=== PATIENT | female | born 1995 | race Caucasian/White ===

== ENCOUNTER 2017-12-11 18:36 | Emergency (ER) | payer OTHER ==
[~2017-12-11] VITALS: Ht 160 cm; Wt 54.4 kg
[~2017-12-11 18:36] MED LIST: INTESTINEX1 CAP PO; PROTONIX40 MG PO
== END 2017-12-11 22:21 | disposition home or self-care (01) ==
LOC: ER 18:36
DX: S00.83XA Contusion of other part of head, initial encounter (principal); W22.8XXA Striking against or struck by other objects, initial encounter; Y93.89 Activity, other specified; Y92.89 Other specified places as the place of occurrence of the external cause; Y99.8 Other external cause status

== ENCOUNTER → 2018-11-05 07:13 | Outpatient (CLI) | payer OTHER | END | disposition home or self-care (01) | LOC: LAB 07:13 | DX: D68.61 Antiphospholipid syndrome (principal); D68.62 Lupus anticoagulant syndrome; K80.10 Calculus of gallbladder with chronic cholecystitis without obstruction; D68.8 Other specified coagulation defects; D50.8 Other iron deficiency anemias; D51.3 Other dietary vitamin B12 deficiency anemia; I10 Essential (primary) hypertension ==

== ENCOUNTER 2019-01-02 17:28 | Emergency (ER) | payer OTHER ==
[~2019-01-02] VITALS: Ht 160 cm; Wt 52.2 kg
== END 2019-01-02 19:51 | disposition home or self-care (01) ==
LOC: ER 17:28
DX: K80.80 Other cholelithiasis without obstruction (principal)

== ENCOUNTER → 2019-10-01 | Emergency (ER) | payer OTHER ==
[~2019-10-01] VITALS: Ht 157.5 cm; Wt 50.3 kg
== END | disposition home or self-care (01) ==
LOC: ER 13:46
DX: S00.03XA Contusion of scalp, initial encounter (principal); W22.8XXA Striking against or struck by other objects, initial encounter; Y93.89 Activity, other specified; Y92.018 Other place in single-family (private) house as the place of occurrence of the external cause; Y99.8 Other external cause status

== ENCOUNTER 2019-12-30 10:42 | Outpatient (CLI) | payer OTHER | END 2019-12-30 15:00 | disposition home or self-care (01) | LOC: LAB 10:42 | PROVIDERS: ATTEND Internal Medicine Hematology & Oncology | DX: D50.8 Other iron deficiency anemias (principal); I10 Essential (primary) hypertension; E78.2 Mixed hyperlipidemia; E03.8 Other specified hypothyroidism; D68.8 Other specified coagulation defects; D68.62 Lupus anticoagulant syndrome; K80.10 Calculus of gallbladder with chronic cholecystitis without obstruction ==

== ENCOUNTER → 2020-03-28 07:41 | Outpatient (CLI) | payer OTHER | END | disposition home or self-care (01) | LOC: LAB 07:41 | PROVIDERS: ATTEND Internal Medicine Hematology & Oncology | DX: D68.8 Other specified coagulation defects (principal); D66 Hereditary factor VIII deficiency; D67 Hereditary factor IX deficiency; D68.2 Hereditary deficiency of other clotting factors; D68.1 Hereditary factor XI deficiency; D68.62 Lupus anticoagulant syndrome; K80.10 Calculus of gallbladder with chronic cholecystitis without obstruction ==

== ENCOUNTER 2020-05-02 09:45 | Outpatient (CLI) | payer OTHER | END 2020-05-02 09:50 | disposition home or self-care (01) | LOC: LAB 09:45 | PROVIDERS: ATTEND Internal Medicine Hematology & Oncology | DX: D68.8 Other specified coagulation defects (principal); D67 Hereditary factor IX deficiency; D68.61 Antiphospholipid syndrome; K80.10 Calculus of gallbladder with chronic cholecystitis without obstruction ==

== ENCOUNTER 2020-07-13 07:35 | Outpatient (CLI) | payer OTHER | END 2020-07-13 07:59 | disposition home or self-care (01) | LOC: LAB 07:35 | PROVIDERS: ATTEND Internal Medicine Hematology & Oncology | DX: D67 Hereditary factor IX deficiency (principal); D68.8 Other specified coagulation defects; D68.62 Lupus anticoagulant syndrome; K80.10 Calculus of gallbladder with chronic cholecystitis without obstruction ==

== ENCOUNTER 2021-05-08 18:06 | Emergency (ER) | payer OTHER ==
[~2021-05-08] VITALS: Ht 160 cm; Wt 51.7 kg
== END 2021-05-09 00:55 | disposition home or self-care (01) ==
LOC: ER 18:06
DX: K80.20 Calculus of gallbladder without cholecystitis without obstruction (principal)
CPT/HCPCS: 74177; Q9965

== ENCOUNTER 2022-01-10 09:10 | Outpatient (CLI) | payer OTHER | END 2022-01-10 09:11 | disposition home or self-care (01) | LOC: LAB 09:10 | PROVIDERS: ATTEND Neuromusculoskeletal Medicine & OMM | DX: G62.9 Polyneuropathy, unspecified (principal); E11.9 Type 2 diabetes mellitus without complications; E03.9 Hypothyroidism, unspecified; G43.009 Migraine without aura, not intractable, without status migrainosus; R20.2 Paresthesia of skin; E78.00 Pure hypercholesterolemia, unspecified ==

== ENCOUNTER → 2023-02-26 06:43 | Outpatient (CLI) | payer OTHER ==
[2023-02-26 07:58] LABS: COL EPI 111 SECONDS (82-175)
[2023-02-26 08:04] LABS: HEMATOCRIT 37.7 % (36.0-45.00); HEMOGLOBIN 12.6 g/dL (12.0-15.00); MEAN CELL VOLUME 83.7 fL (80.00-100.00); MEAN CORPUSCULAR HEMOGLOBIN 27.9 pg (27.00-32.0); MEAN CORPUSCULAR HGB CONC 33.4 g/dl (32.0-36.0); PLATELET COUNT 171 K/uL (150-450); RED BLOOD COUNT 4.51 M/uL (4.00-6.00)
[2023-02-26 08:10] LABS: INR 1.09; PARTIAL THROMBOPLASTIN TIME 33.8 SECONDS (22.0-34.0); PROTHROMBIN TIME 11.4 SECONDS (9.0-11.5)
[2023-02-26 08:30] LABS: PT 50:50 10.5 SECONDS (9.7-11.4); PTT 50:50 29.9 SECONDS (22.4-33.0)
[2023-02-26 08:34] LABS: % SATURACION 16.1 % (15-50); ALBUMIN 3.4 gm/dL (3.4-5.0); BILIRUBIN TOTAL 0.48 mg/dL (0.3-1.2); CALCIUM 8.5 mg/dL (8.5-10.1); CREATININE SERUM 0.75 mg/dL (0.55-1.02); FERRITIN 46.2 NG/ML (8-252); GFR 91.36; GLOBULINA 3.6 G/DL (2.4-3.5); POTASSIUM 4.1 mEq/L (3.5-5.1)
[2023-02-26 09:29] LABS: FOLIC ACID 15.19 ng/ml (4.78-20)
== END | disposition home or self-care (01) ==
LOC: LAB 06:43
PROVIDERS: ATTEND Internal Medicine Hematology & Oncology
DX: D50.8 Other iron deficiency anemias (principal); I10 Essential (primary) hypertension; R74.02 Elevation of levels of lactic acid dehydrogenase [LDH]; K76.89 Other specified diseases of liver; D68.8 Other specified coagulation defects; D69.1 Qualitative platelet defects; D68.312 Antiphospholipid antibody with hemorrhagic disorder; D67 Hereditary factor IX deficiency; K80.10 Calculus of gallbladder with chronic cholecystitis without obstruction; L60.1 Onycholysis

== ENCOUNTER 2023-05-20 05:40 | Day surgery (SDC) | payer OTHER ==
[2023-04-30 10:58] LABS: PH,URINE 7.5 (5.0-8.0); URINE APPEARANCE Clear; URINE BILIRRUBIN Negative (NEGATIVE); URINE BLOOD Negative; URINE COLOR Yellow; URINE GLUCOSE Negative (NEGATIVE); URINE LEUKOCYTE Small; URINE NITRATE Negative; URINE PROTEIN Negative (NEGATIVE); URINE UROBILINOGEN 0.2 E.U./dl
[2023-04-30 11:01] LABS: HEMATOCRIT 39.6 % (36.0-45.00); HEMOGLOBIN 13.4 g/dL (12.0-15.00); MEAN CELL VOLUME 83.1 fL (80.00-100.00); MEAN CORPUSCULAR HGB CONC 33.7 g/dl (32.0-36.0); PLATELET COUNT 179 K/uL (150-450); RED BLOOD COUNT 4.77 M/uL (4.00-6.00); RED CELL DISTRIBUTION WIDTH 12.8 % (11.5-14.5)
[2023-04-30 11:02] LABS: URINE BACTERIA 1096.1 uL (0.0-1933); URINE EPITHELIAL CELLS 19.6 uL (0.0-38.8); URINE RBC 7.7 uL (0.0-20.8); URINE WBC 12.2 uL (0.0-23.2)
[2023-04-30 11:37] LABS: INR 1.06; PARTIAL THROMBOPLASTIN TIME 34.1 SECONDS (22.0-34.0); PROTHROMBIN TIME 11.1 SECONDS (9.0-11.5)
[2023-04-30 11:44] LABS: ALBUMIN 3.7 gm/dL (3.4-5.0); BILIRUBIN TOTAL 0.77 mg/dL (0.3-1.2); CALCIUM 9.2 mg/dL (8.5-10.1); CREATININE SERUM 0.75 mg/dL (0.55-1.02); GFR 91.36; GLOBULINA 3.8 G/DL (2.4-3.5); POTASSIUM 4.43 mEq/L (3.5-5.1); TOTAL PROTEIN 7.5 gm/dL (6.4-8.2)
[2023-05-20] MEDS ORDERED: TRAMADOL HCL50 MG PO (08:51)
[2023-05-20] MEDS ORDERED: ACETAMINOPHEN325 M1 PO (08:51)
[2023-05-20] MEDS ORDERED: MIRALAX510 GM PO (08:52)
== END 2023-05-20 11:35 | disposition home or self-care (01) ==
LOC: CIR.AMB 05:40
PROVIDERS: ATTEND Surgery
DX: K80.10 Calculus of gallbladder with chronic cholecystitis without obstruction (principal)

== ENCOUNTER 2023-08-12 09:05 | Emergency (ER) | payer OTHER ==
[~2023-08-12] VITALS: Ht 160 cm; Wt 51.3 kg
[~2023-08-12 09:05] MED LIST changes: +ACETAMINOPHEN325 M1 PO; +MIRALAX510 GM PO; +TRAMADOL HCL50 MG PO
[2023-08-12] MEDS ORDERED: KETOROLAC TROMETHAMINE 60 MG VIAL IM STA (10:12)
[2023-08-12 10:39] LABS: HEMATOCRIT 38.7 % (36.0-45.00); HEMOGLOBIN 12.9 g/dL (12.0-15.00); MEAN CELL VOLUME 82.7 fL (80.00-100.00); MEAN CORPUSCULAR HEMOGLOBIN 27.7 pg (27.00-32.0); MEAN CORPUSCULAR HGB CONC 33.5 g/dl (32.0-36.0); PLATELET COUNT 170 K/uL (150-450); RED BLOOD COUNT 4.67 M/uL (4.00-6.00); RED CELL DISTRIBUTION WIDTH 12.9 % (11.5-14.5)
== END 2023-08-12 12:00 | disposition home or self-care (01) ==
LOC: ER 09:05
PROVIDERS: General Practice
DX: R07.89 Other chest pain (principal)

== ENCOUNTER 2024-03-07 13:10 | Emergency (ER) | payer OTHER ==
[~2024-03-07] VITALS: Ht 160 cm; Wt 53.1 kg
[2024-03-07] MEDS ORDERED: SUMATRIPTAN SUCCINATE 6 MG/0.5 ML VIAL SUBCUTANEO STA (15:24)
[2024-03-07] MEDS ORDERED: NORFLEX100MG PO (17:32)
== END 2024-03-07 18:22 | disposition home or self-care (01) ==
LOC: ER 13:12
DX: G43.909 Migraine, unspecified, not intractable, without status migrainosus (principal); M62.838 Other muscle spasm

== ENCOUNTER → 2024-07-07 08:52 | Outpatient (CLI) | payer OTHER ==
[~2024-07-07 08:52] MED LIST changes: +NORFLEX100MG PO
[2024-07-07 09:43] LABS: HEMATOCRIT 38.7 % (36.0-45.00); HEMOGLOBIN 13.2 g/dL (12.0-15.00); MEAN CELL VOLUME 82.5 fL (80.00-100.00); MEAN CORPUSCULAR HEMOGLOBIN 28.1 pg (27.00-32.0); MEAN CORPUSCULAR HGB CONC 34.1 g/dl (32.0-36.0); PLATELET COUNT 161 K/uL (150-450); RED CELL DISTRIBUTION WIDTH 13.4 % (11.5-14.5)
[2024-07-07 10:31] LABS: % SATURACION 36.2 % (15-50); ALBUMIN 3.5 gm/dL (3.4-5.0); BILIRUBIN TOTAL 0.7 mg/dL (0.3-1.2); CREATININE SERUM 0.67 mg/dL (0.55-1.02); FERRITIN 37.3 NG/ML (8-252); GFR 103.34; GLOBULINA 3.7 G/DL (2.4-3.5); POTASSIUM 4.46 mEq/L (3.5-5.1); TOTAL PROTEIN 7.2 gm/dL (6.4-8.2)
[2024-07-07 10:52] LABS: FOLIC ACID 16.72 ng/ml (4.78-20); VITAMIN D3 25 HYDROXY 18.54 ng/ml (30-120)
== END | disposition home or self-care (01) ==
LOC: LAB 08:52
PROVIDERS: ATTEND Internal Medicine Hematology & Oncology
DX: D68.61 Antiphospholipid syndrome (principal); D68.62 Lupus anticoagulant syndrome; D67 Hereditary factor IX deficiency; K80.10 Calculus of gallbladder with chronic cholecystitis without obstruction; L60.1 Onycholysis; D50.8 Other iron deficiency anemias; I10 Essential (primary) hypertension; R74.02 Elevation of levels of lactic acid dehydrogenase [LDH]; K76.89 Other specified diseases of liver; E55.9 Vitamin D deficiency, unspecified

== ENCOUNTER 2025-03-24 18:05 | Emergency (ER) | payer OTHER ==
[~2025-03-24] VITALS: Ht 160 cm; Wt 53.1 kg
[2025-03-24] MEDS ORDERED: PROTONIX20 MG (19:25)
[2025-03-24] MEDS ORDERED: KETOROLAC TROMETHAMINE 10 MG TABLET PO ONE ×3 (19:45→21:46)
[2025-03-24 22:06] LABS: BASO % 0.4 % (0.1-1.2); EOS # 0.21 (0.04-0.54); EOS % 2.0 % (0.7-7.0); LYMPH # 3.01 (1.18-3.74); LYMPH % 29.0 % (19.3-53.1); MEAN PLATELET VOLUME 10.90 fl (9.4-12.4); MONO # 0.82 (0.24-0.82); MONO % 7.9 % (4.7-12.5); NEUT # 6.27 (1.56-6.13); NEUT % 60.4 % (34.0-71.1); RED CELL DISTRIBUTION WIDTH 11.9 % (11.6-14.4)
[2025-03-24] MEDS ORDERED: AZITHROMYCIN500 MG PO (23:17)
[2025-03-24] MEDS ORDERED: PEPCID AC20 MG PO (23:17)
== END 2025-03-25 00:03 | disposition home or self-care (01) ==
LOC: ER 18:06
PROVIDERS: General Practice
DX: R07.89 Other chest pain (principal); J06.9 Acute upper respiratory infection, unspecified; R06.02 Shortness of breath